=== PATIENT | female | born 1990 | race Caucasian/White ===

== ENCOUNTER 2016-06-12 00:45 | Emergency (ER) | payer OTHER ==
[~2016-06-12] VITALS: Ht 165.1 cm; Wt 74.8 kg
[~2016-06-12 00:45] MED LIST: BACTRIM,SEPT1 TABLET PO; BUPROPION HCL75 MG PO; BUSPAR10 MG PO; CHANTIX1 MG PO; CLEOCIN300 MG PO; COLACE100 MG PO; EFFEXOR XR150 MG PO; FLAGYL500 MG PO; KEFLEX500 MG PO; MIRALAX17 GM PO; MOTRIN600 MG PO; MOTRIN800 MG PO; NOHOMEMEDS; NORCO 5/3251 TABLET PO; ONDANSETRON ODT4 MG PO; PRENATAL1 EACH; SUBOXONE 4 MG-1 EACH SL; SUBOXONE 8 MG-1 EAC2 SL; ULTRAM50 MG PO; VENLAFAXINE HC150 M1 PO; WELLBUTRIN75 MG PO; XANAX0.5 MG PO; ZOFRAN ODT4 MG PO; ZOFRAN4 MG PO
[2016-06-12 01:03] LABS: HEMATOCRIT 44.5 % (36.0-46.0); MCH 31.5 PG (29.0-34.0); MCHC 34.2 G/DL (30.0-36.0); MCV 92.3 FL (83-99); MEAN PLAT.VOLUME 10.3 uM^3 (9.5-12.4); PLATELET COUNT 302 K/uL (156-360); RBC DIS.WIDTH-CV 13.2 % (11.8-14.6); RBC DIS.WIDTH-SD 43.1 % (39-53); RED BLOOD COUNT 4.82 M/uL (3.80-5.20); WHITE BLOOD COUNT 9.6 K/uL (4.1-10.2)
[2016-06-12 01:06] LABS: EOSINOPHIL (%) 1.4 % (0-5); EOSINOPHIL COUNT 0.1 K/uL (0-0.3); IMMATURE GRANULOCYTE (%) 0.2 % (0.0-0.7); IMMATURE GRANULOCYTE COUNT 0.2 K/uL; MONOCYTE (%) 8.6 % (3-12); MONOCYTE COUNT 0.8 K/uL (0-0.8); NEUTROPHIL (%) 37.5 % (45-76); NEUTROPHIL COUNT 3.6 K/uL (1.8-6.4)
[2016-06-12 01:14] LABS: CHLORIDE 104 mEq/L (99-109); POTASSIUM 4.4 mEq/L (3.7-5.4); SODIUM 141 mEq/L (136-147)
[2016-06-12 01:16] LABS: GLUCOSE 159 mg/dL (70-99)
[2016-06-12 01:17] LABS: ANION GAP 14 MEQ/L (2-14)
[2016-06-12 01:18] LABS: TOTAL BILIRUBIN 0.2 mg/dL (0.0-1.0)
[2016-06-12 01:19] LABS: SERUM ETHYL ALCOHOL 171 mg/dL
[2016-06-12 01:20] LABS: ALKALINE PHOSPHATASE 70 IU/L (3-129); GFR ESTIMATE (CALCULATED) > 59 mL/min/
[2016-06-12 01:22] LABS: UREA NITROGEN (BUN) 13 mg/dL (9-23)
[2016-06-12 01:23] LABS: SALICYLATE < 5.0 MG/DL (15-30)
[2016-06-12 01:25] LABS: ADD MIUA? YES; BILIRUBIN NEGATIVE; BLOOD SMALL; COLOR STRAW ((YELLOW)); GLUCOSE (STRIP) NEGATIVE; KETONES NEGATIVE; LEUKOCYTES NEGATIVE; NITRITE NEGATIVE; PROTEIN (STRIP) 30; SPECIFIC GRAVITY 1.008 (1.000-1.030); UROBILINOGEN 0.2 MG/DL (0.2-1.0)
[2016-06-12 01:32] LABS: QUANTITATIVE HCG < 4.0 MIU/ML
[2016-06-12 01:37] LABS: BACTERIA RARE /HPF; EPITHELIAL CELLS 1+ /HPF; MUCUS TRACE /LPF; RED BLOOD CELLS 0-5 /HPF (0-5); UCUL ADDED? NO; WHITE BLOOD CELLS 0-5 /HPF (0-5)
[2016-06-12 01:39] LABS: AMPHETAMINE NEGATIVE (500 ng/mL); BARBITURATES NEGATIVE (200 ng/mL); BENZODIAZEPINES NEGATIVE (150 ng/mL); COCAINE NEGATIVE (150 ng/mL); INTERNAL CONTROLS VALID? YES; METHADONE NEGATIVE (200 ng/mL); METHAMPHETAMINE NEGATIVE (500 ng/mL); OPIATES (MORPHINE) PRESUMPTIVE POSITIVE (100 ng/mL); OXYCODONE NEGATIVE (100 ng/mL); PHENCYCLIDINE NEGATIVE (25 ng/mL); PROPOXYPHENE NEGATIVE (300 ng/mL); THC CANNABINOIDS NEGATIVE (50 ng/mL); TRICYCLIC ANTIDEPRESSANTS NEGATIVE (300 ng/mL)
[2016-06-12 01:40] LABS: ADD MEDTOX COMMENT Y
[2016-06-12] MEDS ORDERED: NARCAN4 MG NS (03:09)
[2016-06-12 03:24] VITALS: BP 121/82
== END 2016-06-12 03:25 | disposition home or self-care (01) ==
LOC: EME 00:45
PROVIDERS: Emergency Medicine
DX: R09.2 Respiratory arrest (principal); T40.604A Poisoning by unspecified narcotics, undetermined, initial encounter; F19.10 Other psychoactive substance abuse, uncomplicated; F17.200 Nicotine dependence, unspecified, uncomplicated
CPT/HCPCS: 71010; 80053; 81003; 84702; 84999; 85025; 93005; 99281; 99285; G0480; J2310; J7030

== ENCOUNTER 2017-01-04 18:48 | Emergency (ER) | payer OTHER ==
[~2017-01-04] VITALS: Ht 165.1 cm; Wt 64.7 kg
[~2017-01-04 18:48] MED LIST changes: +NARCAN4 MG NS
[2017-01-04 19:40] LABS: BASOPHIL COUNT 0.1 K/uL (0-0.1); EOSINOPHIL (%) 1.3 % (0-5); EOSINOPHIL COUNT 0.1 K/uL (0-0.3); HEMATOCRIT 49.9 % (36.0-46.0); IMMATURE GRANULOCYTE (%) 0.3 % (0.0-0.7); INSTRUMENT ABS NEUTROPHIL CT 4.8 K/uL; LYMPHOCYTE COUNT 3.4 K/uL (1.0-2.8); MCH 31.1 PG (29.0-34.0); MCHC 33.7 G/DL (30.0-36.0); MCV 92.2 FL (83-99); MEAN PLAT.VOLUME 10.5 uM^3 (9.5-12.4); MONOCYTE (%) 8.5 % (3-12); MONOCYTE COUNT 0.8 K/uL (0-0.8); NEUTROPHIL (%) 52.3 % (45-76); NEUTROPHIL COUNT 4.8 K/uL (1.8-6.4); PLATELET COUNT 243 K/uL (156-360); RBC DIS.WIDTH-CV 13.4 % (11.8-14.6); RBC DIS.WIDTH-SD 45.4 % (39-53); RED BLOOD COUNT 5.41 M/uL (3.80-5.20); WHITE BLOOD COUNT 9.2 K/uL (4.1-10.2)
[2017-01-04 19:50] LABS: CHLORIDE 103 mEq/L (99-109); POTASSIUM 4.3 mEq/L (3.7-5.4); SODIUM 140 mEq/L (136-147)
[2017-01-04 19:52] LABS: GLUCOSE 113 mg/dL (70-99)
[2017-01-04 19:54] LABS: ANION GAP 15 MEQ/L (2-14); TOTAL BILIRUBIN 0.5 mg/dL (0.0-1.0)
[2017-01-04 19:56] LABS: ALKALINE PHOSPHATASE 78 IU/L (3-129); GFR ESTIMATE (CALCULATED) > 59 mL/min/
[2017-01-04 19:57] LABS: UREA NITROGEN (BUN) 11 mg/dL (9-23)
[2017-01-04] MEDS ORDERED: MOTRIN600 MG PO (22:23)
[2017-01-04] MEDS ORDERED: PERCOCET 5/31 TABLET PO (22:23)
[2017-01-04 22:30] VITALS: BP 112/67
== END 2017-01-04 22:28 | disposition left against medical advice (07) ==
LOC: EME 18:48
PROVIDERS: Emergency Medicine
DX: S20.212A Contusion of left front wall of thorax, initial encounter (principal); T71.9XXA Asphyxiation due to unspecified cause, initial encounter; R10.9 Unspecified abdominal pain; Y04.8XXA Assault by other bodily force, initial encounter; J45.909 Unspecified asthma, uncomplicated; F32.9 Major depressive disorder, single episode, unspecified; F41.9 Anxiety disorder, unspecified; F17.200 Nicotine dependence, unspecified, uncomplicated
CPT/HCPCS: 70498; 71101; 74177; 80053; 84703; 85025; 99281; 99284; J1885; J2270

== ENCOUNTER 2017-01-17 20:59 | Emergency (ER) | payer OTHER ==
[~2017-01-17] VITALS: Ht 165.1 cm; Wt 65.5 kg
[~2017-01-17 20:59] MED LIST changes: +PERCOCET 5/31 TABLET PO
[2017-01-17] MEDS ORDERED: ZOFRAN4 MG PO (22:48)
[2017-01-17] MEDS ORDERED: CLONIDINE HCL0.1 MG PO (22:48)
[2017-01-17] MEDS ORDERED: TRAZODONE HCL50 MG PO (22:48)
[2017-01-18 00:01] VITALS: BP 143/102
== END 2017-01-18 00:19 | disposition home or self-care (01) ==
LOC: EME 20:59
DX: T40.0X1A Poisoning by opium, accidental (unintentional), initial encounter (principal); F11.23 Opioid dependence with withdrawal; F11.10 Opioid abuse, uncomplicated; J45.909 Unspecified asthma, uncomplicated; F31.9 Bipolar disorder, unspecified; F32.9 Major depressive disorder, single episode, unspecified; F41.9 Anxiety disorder, unspecified; F17.200 Nicotine dependence, unspecified, uncomplicated
CPT/HCPCS: 99281; 99285

== ENCOUNTER 2017-09-09 01:29 | Emergency (ER) | payer OTHER ==
[~2017-09-09] VITALS: Ht 165.1 cm; Wt 63.3 kg
[~2017-09-09 01:29] MED LIST changes: +CLONIDINE HCL0.1 MG PO; +TRAZODONE HCL50 MG PO
[2017-09-09] MEDS ORDERED: PERCOCET 5/31 TABLET PO (03:46)
[2017-09-09 04:04] VITALS: BP 122/62
== END 2017-09-09 04:06 | disposition home or self-care (01) ==
LOC: EME 01:29
PROC: 0H98XZZ Drainage of Buttock Skin, External Approach (ICD-10-PCS; principal; 2017-09-09)
DX: L02.31 Cutaneous abscess of buttock (principal)
CPT/HCPCS: 87070; 87075; 87077; 87147; 87186; 87205; 99281; 99284